=== PATIENT | male | born 1975 | race Caucasian/White ===

== ENCOUNTER 2021-09-17 12:20 | Emergency (ER) | payer BC ==
[2021-09-17] MEDS ORDERED: DIPHTH,PERTUSS(ACELL),TET 0.5 ML DISP.SYRIN IM ONE ×2 (12:44→12:55)
[2021-09-17 12:50] VITALS: BP 122/90; PULSE 82; TEMP 99; BMI 26.5
== END 2021-09-17 13:08 | disposition home or self-care (01) ==
LOC: FER 12:20
PROC: 3E0234Z Introduction of Serum, Toxoid and Vaccine into Muscle, Percutaneous Approach (ICD-10-PCS; principal; 2021-09-17)
DX: S81.852A Open bite, left lower leg, initial encounter (principal); S80.811A Abrasion, right lower leg, initial encounter; W54.0XXA Bitten by dog, initial encounter
CPT/HCPCS: 90715; 99284-25